=== PATIENT | female | born 1940 | race Caucasian/White ===

== ENCOUNTER → 2017-03-14 | Outpatient (CLI) | payer MEDICARE, BC ==
[~2017-03-14] MED LIST: 'TENORMIN50 MG PO; AMLODIPINE BES2.5 MG PO; ANUSOL-HC25 MG R; ASPIRIN ADULT L81 M1 PO; ATENOLOL50 M1 PO; CALTRATE 600 +1 TAB PO; DIOVAN HCT PO; FISH OIL500 M1 PO; LEVOTHYROXINE0.05 MG PO; OCUVITE1 TA1 PO; PRAVASTATIN SOD10 MG PO; VALSARTAN-HCTZ1 EAC1 PO
== END | disposition home or self-care (01) ==
LOC: MAMMO 12:09
DX: Z12.31 Encounter for screening mammogram for malignant neoplasm of breast (principal)

== ENCOUNTER → 2017-06-12 | Outpatient (CLI) | payer MEDICARE, BC | END | disposition home or self-care (01) | LOC: MRI 09:17 | DX: M48.06 Spinal stenosis, lumbar region (principal); M47.896 Other spondylosis, lumbar region; M12.88 Other specific arthropathies, not elsewhere classified, other specified site; Z91.81 History of falling ==

== ENCOUNTER → 2018-11-10 | Outpatient (CLI) | payer MEDICARE, BC | END | disposition home or self-care (01) | LOC: LAB 10:28 | DX: B95.62 Methicillin resistant Staphylococcus aureus infection as the cause of diseases classified elsewhere (principal); Z22.322 Carrier or suspected carrier of Methicillin resistant Staphylococcus aureus ==

== ENCOUNTER → 2019-09-03 | Outpatient (CLI) | payer MEDICARE, BC ==
[~2019-09-03] MED LIST changes: +EPIPEN 2-P0.3 MG/0.3 IJ; +LIDEX 0.05% CRE15 GM T
[2019-09-03 09:32] LABS: BASO % 0.5 % (0.0-1.0); EOS # 0.2 10*3/uL (0.0-0.4); EOS % 2.9 % (1.0-4.0); HEMATOCRIT 46.9 % (37.0-47.0); HEMOGLOBIN 14.8 g/dl (12.0-16.0); LYMPH # 1.7 10*3/uL (1.3-4.4); LYMPH % 26.8 % (27.0-41.0); MEAN CELL VOLUME 94.6 fl (81.0-99.0); MEAN CORPUSCULAR HGB 29.8 pg (27.0-31.0); MEAN CORPUSCULAR HGB CONC 31.6 g/dl (33.0-37.0); MEAN PLATELET VOLUME 9.7 fl (9.6-12.3); MONO # 0.6 10*3/uL (0.1-1.0); MONO % 9.4 % (3.0-9.0); NEUT # 3.8 10*3/uL (2.3-7.9); NEUT % 60.2 % (47.0-73.0); PLATELET COUNT AUTOMATED 239 10*3/uL (130-400); RED BLOOD COUNT 4.96 10*6/uL (4.10-5.10); RED CELL DISTRI WIDTH 14.3 % (0-14.5); WHITE BLOOD COUNT 6.3 10*3/uL (4.8-10.8)
[2019-09-03 09:57] LABS: ALBUMIN 3.7 gm/dl (3.1-4.5); BUN 18 mg/dl (7-24); CHLORIDE 106 mmol/L (98-107); CHOLESTEROL 204 mg/dL (<200); CREATININE 0.99 mg/dL (0.55-1.02); POTASSIUM 4.2 mmol/L (3.5-5.1); SGOT/AST 18 IU/L (3-35); SGPT/ALT 26 U/L (12-78); SODIUM 140 mmol/L (136-145); TOTAL PROTEIN 7.5 gm/dL (6.4-8.2); TRIGLYCERIDES 118 mg/dl (<150); VLDL CHOLESTEROL 24 mg/dL (6-40)
[2019-09-03 10:04] LABS: ALKALINE PHOSPHATASE 58 U/L (45-117); FREE T4 1.14 ng/dl (0.76-1.46); HDL CHOLESTEROL 81 mg/dl (40-60); LDL CHOLESTEROL 99 mg/dL (9-159)
[2019-09-03 10:23] LABS: VITAMIN D, 25-HYDROXY 23.4 ng/mL (30-100)
== END | disposition home or self-care (01) ==
LOC: LAB 08:42
PROVIDERS: Internal Medicine
DX: N39.0 Urinary tract infection, site not specified (principal); E78.2 Mixed hyperlipidemia; D52.9 Folate deficiency anemia, unspecified; D51.9 Vitamin B12 deficiency anemia, unspecified; E55.9 Vitamin D deficiency, unspecified; E87.5 Hyperkalemia; E03.9 Hypothyroidism, unspecified; R74.8 Abnormal levels of other serum enzymes; R51 Headache; R79.89 Other specified abnormal findings of blood chemistry; R53.81 Other malaise

== ENCOUNTER 2019-10-05 14:35 | Emergency (ER) | payer MEDICARE, BC ==
[~2019-10-05] VITALS: Ht 167.6 cm; Wt 92.1 kg
[~2019-10-05 14:35] MED LIST changes: -EPIPEN 2-P0.3 MG/0.3 IJ; -LIDEX 0.05% CRE15 GM T
[2019-10-05 14:37] VITALS: BP 143/92
[2019-10-05] MEDS ORDERED: EPIPEN 2-P0.3 MG/0.3 IJ (15:07)
[2019-10-05] MEDS ORDERED: LIDEX 0.05% CRE15 GM T (15:09)
== END 2019-10-05 15:15 | disposition home or self-care (01) ==
LOC: ED 14:35
DX: T63.441A Toxic effect of venom of bees, accidental (unintentional), initial encounter (principal); Z79.899 Other long term (current) drug therapy; Y92.098 Other place in other non-institutional residence as the place of occurrence of the external cause

== ENCOUNTER → 2020-08-22 | Outpatient (CLI) | payer MEDICARE, BC ==
[~2020-08-22] MED LIST changes: +CLONIDINE HYDR0.1 MG PO; +COLACE100 MG PO; +DILTIAZEM HYDR120 M2 PO; +ELIQUIS5 M1 PO; +EPIPEN 2-P0.3 MG/0.3 IJ; +FISH OIL 1,201200 MG PO; -FISH OIL500 M1 PO; +LIDEX 0.05% CRE15 GM T; +PRAVACHOL40 MG PO; -PRAVASTATIN SOD10 MG PO; +VITAMIN D350 MC2 GT; +VITAMIN D350 MC2 PO
--- NOTE | 2020-08-22 08:16 | NUR ---
INFORMED SIGNED CONSENT OBTAINED FOR LEXISCAN STRESS TEST WITH DR FALCON. RESTING EKG NSR WITH ISOLATED PVC. PULSE OX 97% LUNGS CLEAR. PT COMPLETED ONE MINUTE OF A LEXISCAN PROTOCOL WITH PT RECEIVING LEXISCAN 0.4MG IV OVER 10 SECONDS. NO ARRHYTHMIAS OR ST CHANGES NOTED. PT HAD A WEIRD FEELING WITH INJECTION. LAST RECOVERY HR OF 101 BP 138/84. PT IN STABLE CONDITION AWAITING NUCLEAR IMAGES.
== END | disposition home or self-care (01) ==
LOC: CARD 00:34
PROVIDERS: ATTEND Internal Medicine
DX: R07.9 Chest pain, unspecified (principal); R06.02 Shortness of breath; R94.31 Abnormal electrocardiogram [ECG] [EKG]

== ENCOUNTER → 2020-08-24 | Outpatient (CLI) | payer MEDICARE, BC | END | disposition home or self-care (01) | LOC: CARD 08-23 00:16 | PROVIDERS: ATTEND Internal Medicine | DX: I35.8 Other nonrheumatic aortic valve disorders (principal); I05.8 Other rheumatic mitral valve diseases ==

== ENCOUNTER → 2021-09-15 | Outpatient (CLI) | payer MEDICARE, BC | END | disposition home or self-care (01) | LOC: MRI 07:44 | PROVIDERS: ATTEND Internal Medicine | DX: S90.32XA Contusion of left foot, initial encounter (principal); M79.89 Other specified soft tissue disorders; X58.XXXA Exposure to other specified factors, initial encounter; Y93.89 Activity, other specified; Y92.89 Other specified places as the place of occurrence of the external cause; Y99.8 Other external cause status ==

== ENCOUNTER → 2022-08-06 | Outpatient (CLI) | payer MEDICARE, BC | END | disposition home or self-care (01) | LOC: RAD 07:30 | PROVIDERS: ATTEND Internal Medicine | DX: M85.851 Other specified disorders of bone density and structure, right thigh (principal); M16.11 Unilateral primary osteoarthritis, right hip; Z78.0 Asymptomatic menopausal state ==

== ENCOUNTER 2022-12-03 09:16 | Emergency (ER) | payer MEDICARE, BC ==
[~2022-12-03] VITALS: Wt 82.1 kg
[2022-12-03 09:22] VITALS: BP 127/68
== END 2022-12-03 09:49 | disposition home or self-care (01) ==
LOC: ED 09:16
DX: I48.91 Unspecified atrial fibrillation (principal); Z90.49 Acquired absence of other specified parts of digestive tract; Z98.51 Tubal ligation status

== ENCOUNTER → 2024-09-08 | Outpatient (CLI) | payer MEDICARE, BC | END | disposition home or self-care (01) | LOC: CARD 09:00 | PROVIDERS: ATTEND Internal Medicine Interventional Cardiology | DX: I48.0 Paroxysmal atrial fibrillation (principal); Z79.899 Other long term (current) drug therapy ==

== ENCOUNTER → 2024-12-15 | Outpatient (CLI) | payer MEDICARE, BC | END | disposition home or self-care (01) | LOC: MRI 07:29 | PROVIDERS: ATTEND Internal Medicine | DX: M51.369 Other intervertebral disc degeneration, lumbar region without mention of lumbar back pain or lower extremity pain (principal); M48.061 Spinal stenosis, lumbar region without neurogenic claudication; I35.8 Other nonrheumatic aortic valve disorders; I48.0 Paroxysmal atrial fibrillation; Z82.61 Family history of arthritis ==